=== PATIENT | female | born 1945 | race Caucasian/White ===

== ENCOUNTER 2023-01-22 13:15 | Emergency (ER) | payer OTHER ==
[~2023-01-22] VITALS: Ht 162.6 cm; Wt 81.6 kg
[2023-01-22 13:24] VITALS: BP 114/50
--- NOTE | 2023-01-22 13:35 | NUR ---
PT WHEELCHAIR ASSISTED TO ROOM 5
--- NOTE | 2023-01-22 13:45 | NUR ---
77YO FEMALE PT BIB DAUGHTER C/O COUGH AND SOB X4DAYS. CHEST PAIN ON COUGH. MOIST COUGH PRESENT. DENIES N/V/D, FEVER OR CHILLS. +SICK DAUGHTER AT HOME. PT AAOX4, ON BURR PICKER. RESPRIATIONS EVEN AND UNLABORED. AMB USING CANE. DAUGHTER AT BEDSIDE HX: ASTHMA, COPD, AFIB, HTN ALLERGIES: PENICILLIN, TYLENOL , ASPIRIN, MORPHINE
--- NOTE | 2023-01-22 13:50 | NUR ---
pt swabbed for covid(олег) and flu. walked and handed to lab
[2023-01-22 14:03] LABS: RSV NEGATIVE (NEGATIVE)
--- NOTE | 2023-01-22 14:19 | NUR ---
MD MADERA AT BEDSIDE FOR EVALUATION
--- NOTE | 2023-01-22 14:24 | NUR ---
xray at bedside
[2023-01-22] MEDS ORDERED: LEVO750T75 PO (14:42)
--- NOTE | 2023-01-22 14:56 | NUR ---
Patient discharged with v/s stable. Written and verbal after care instructions FOR COMMUNITY ACQUIRED PNEUMONIA given and explained. Patient alert, oriented and verbalized understanding of instructions. Wheel Chair Assisted with to car. All questions addressed prior to discharge. ID band removed. Patient advised to follow up with PMD. Rx of LEVOFLOXACIN given. Opportunity to ask questions provided and answered.
--- NOTE | 2023-01-22 15:00 | NUR ---
The patient's care was reviewed and supervised by Marisabel Sierra RN.
== END 2023-01-22 14:56 | disposition home or self-care (01) ==
LOC: MED 13:15
DX: J18.9 Pneumonia, unspecified organism (principal); Z20.822 Contact with and (suspected) exposure to COVID-19; I11.0 Hypertensive heart disease with heart failure; I50.9 Heart failure, unspecified; I48.91 Unspecified atrial fibrillation; J44.9 Chronic obstructive pulmonary disease, unspecified; Z90.49 Acquired absence of other specified parts of digestive tract; Z98.890 Other specified postprocedural states; Z79.899 Other long term (current) drug therapy; Z88.0 Allergy status to penicillin; Z88.6 Allergy status to analgesic agent; Z88.5 Allergy status to narcotic agent; Z88.8 Allergy status to other drugs, medicaments and biological substances
CPT/HCPCS: 71045; 87420; 93005; 99285